=== PATIENT | female | born 2000 | race Caucasian/White ===

== ENCOUNTER 2021-04-12 16:09 | Emergency (ER) | payer OTHER, SELFPAY ==
[2021-04-12 17:05] VITALS: BP 199/92; PULSE 111; RESP 16; TEMP 37.3; O2SAT 98; BMI 41.7
== END 2021-04-12 19:29 | disposition left against medical advice (07) ==
PROVIDERS: Emergency Provider Emergency Medicine; PCP Family Medicine
DX: J02.9 Acute pharyngitis, unspecified (principal)
CPT/HCPCS: 99281; 99282